=== PATIENT | female | born 1960 | race Hispanic/Latino ===

== ENCOUNTER 2018-06-01 23:52 | Emergency (ER) | payer OTHER, SELFPAY ==
[2018-06-02] MEDS ORDERED: KETOROLAC TROMETHAMINE 30MG/ML ONE (01:17)
== END 2018-06-02 02:09 | disposition home or self-care (01) ==
LOC: EDH 23:52
DX: G44.209 Tension-type headache, unspecified, not intractable (principal); R11.10 Vomiting, unspecified; Z72.0 Tobacco use
CPT/HCPCS: 70450; 96372; 99284; J1885